=== PATIENT | female | born 2000 ===

== ENCOUNTER 2022-07-11 14:05 | Emergency (ER) ==
[2022-07-11] MEDS ORDERED: Sodium Chloride 0.9% 1,000 ML IV ONE (15:10)
[2022-07-11] MEDS ORDERED: diphenhydrAMINE 50 MG/ML SDV IV ONE (15:11)
[2022-07-11] MEDS ORDERED: Ketorolac 30 MG/ML SDV IVPUSH ONE (15:11)
[2022-07-11] MEDS ORDERED: Metoclopramide 10 MG/2 ML SDV IV ONE (15:11)
== END 2022-07-11 17:40 | disposition home or self-care (01) ==
LOC: MW.ED 14:05
DX: G43.909 Migraine, unspecified, not intractable, without status migrainosus (principal); Z98.890 Other specified postprocedural states
CPT/HCPCS: 70450; 96374; 96375; 99284; J1200; J1885; J2765; J7030